=== PATIENT | female | born 1970 | race Caucasian/White ===

== ENCOUNTER → 2019-04-25 | Day surgery (SDC) | payer OTHER ==
[~2019-04-25] VITALS: Ht 149.9 cm; Wt 52.2 kg
[~2019-04-25] MED LIST: BUSPIRONE HCL10 MG PO; CARAFATE 1 GM TA1 G1 PO; DEXILANT30 MG PO; IPRAT-ALBUT 0.5-3 ML INH; LAMICTAL200 MG PO; LASIX 20 MG TAB20 MG PO; LISINOPRIL-HCT1 EAC1 PO; MS CONTIN15 MG PO; NORCO 10-325 T1 EACH PO; SINGULAIR 10 MG10 M1 PO; TOPAMAX 25 MG T25 M1 PO; TRAZODONE HCL100 MG PO; VENTOLIN HFA 1818 GM INH; VIIBRYD20 MG PO; ZANTAC 150MG T150 MG PO
--- NOTE | ~2019-04-25 | O ---
[facility] [place] [address] OPERATIVE REPORT Name: TYSHAWN VALIENTE Room #: REG [facility].#: [id number] Admission: 04/25/19 Attend Phys: Amy Bello, Discharge: Date of : 72 Report #: [id number] THIS REPORT FOR: //name// CC: REG [facility] Physician staff Amy Bello DATE OF SERVICE: 04/25/2019 PREOPERATIVE DIAGNOSES: 1. Left carpal tunnel syndrome. 2. Left de Quervain's tenosynovitis. 3. Left long trigger finger. 4. Right trigger thumb. POSTOPERATIVE DIAGNOSES: 1. Left carpal tunnel syndrome. 2. Left de Quervain's tenosynovitis. 3. Left long trigger finger. 4. Right trigger thumb. PROCEDURE PERFORMED: 1. Left open carpal tunnel release. 2. Left first dorsal compartment release. 3. Left long finger trigger finger release. 4. Injection of steroid and local anesthetic to right trigger thumb. SURGEON: Amy Bello MD ANESTHESIA: General mask anesthesia. ESTIMATED BLOOD LOSS: Minimal. TOURNIQUET TIME: 20 minutes. COMPLICATIONS: None. CONDITION: Stable. DISPOSITION: Recovery room. INDICATIONS: The patient is a 48-year-old female with the above-mentioned diagnosis. She elects for operative treatment. The risks, benefits, alternatives and complications were discussed including but not limited to infection, damage to vessels or nerves, incomplete relief of her symptoms. We also discussed flare reaction, skin discoloration and infection. With respect [facility] [place] [address] [place] [address] OPERATIVE REPORT Name: TYSHAWN VALIENTE Room #: REG [facility].#: [id number] Admission: 04/25/19 Attend Phys: Amy Bello, Discharge: Date of : 72 Report #: [id number] to be a steroid injection, informed consent was obtained. The correct extremity was identified and labeled by myself after verbal confirmation of the patient as well as visual confirmation and signed informed consent. DESCRIPTION OF PROCEDURE: The patient was brought back to the operating room and placed on a supine position. She received preoperative antibiotics. Tourniquet was placed over padding on the patient's left upper extremity. Left upper extremity was sterilely prepped and draped in usual fashion. Final timeout was taken to verify correct patient, operative procedure, operative site, all concurred. The arm was elevated, exsanguinated and the tourniquet inflated. All the procedures were done with aid of 3.5 loupe magnification. Next, incisions were made over the surgical sites. Approximately 2 cm incision was made over the first dorsal compartment at the level of the radial styloid. A 2.5-cm incision was made over the carpal tunnel in line with the ring and long finger web space and an oblique 1.5 cm incision was made at the long finger at the level of A1 jose j. First, attention was placed to long finger. Dissection was carried down through subcutaneous tissue with tenotomy scissors. A1 jose j was easily identified and incised. Careful attention was placed to avoid damage to the A2 jose j. The finger was taken through passive range of motion. The tendons glided smoothly. Each tendon was brought gently through the incision to decrease any adhesions between the two tendons. The finger was taken through passive range of motion. There was no locking or clicking. Next, attention was placed to the first compartment. The dissection was carried down through subcutaneous tissue with tenotomy scissors. The dorsal aspect of the first dorsal compartment was incised. There were two separate compartments for the EPB and APL tendons. These were both incised dorsally. The sensory nerve was identified and carefully protected. The release was all the way from the insertion of the APL tendon all the way to approximately 4 cm proximal to the radial styloid. The wrist was taken through full range of motion. There was no subluxation of the tendons. Next, attention was placed to the carpal tunnel and dissection was carried down through subcutaneous tissue with tenotomy scissors. In the mid portion of incision, a #15 blade was used to incise the transverse carpal ligament. The transverse carpal ligament was transected proximally from the antebrachial fascia in the forearm all the way through the fat in the palm. There was a moderate amount of adhesions around the nerve. These were all freed. The wound was thoroughly irrigated. All wounds were irrigated. The skin was closed with 4-0 nylon suture. Wound was dressed with Adaptic and sterile gauze. She was placed in a bulky dressing. All fingers were pink with brisk capillary refill at the conclusion of the case after deflation of tourniquet. All sponge and needle counts were correct. Next, under sterile conditions, 0.75 mL of betamethasone with 0.75 mL of 1% [facility] [address] [place] [address] OPERATIVE REPORT Name: TYSHAWN VALIENTE Room #: REG [facility]#: [id number] Admission: 04/25/19 Attend Phys: Amy Bello, Discharge: Date of : 72 Report #: [id number] lidocaine was injected subcutaneously at the A1 jose j on the right thumb. A Band-Aid was applied. She tolerated this well. By: [id number] Amy Bello MD /nt
[2019-04-25 10:01] LABS: CALCIUM 10.1 mg/dL (8.5-10.1); CREATININE 1.1 mg/dL (0.6-1.0); POTASSIUM 3.8 mmol/L (3.5-5.1)
[2019-04-25 10:17] VITALS: BP 88/47
[2019-04-25 11:58] VITALS: BP 88/47
== END | disposition home or self-care (01) ==
LOC: OR 09:02
PROVIDERS: Anesthesiology
DX: G56.02 Carpal tunnel syndrome, left upper limb (principal); M65.4 Radial styloid tenosynovitis [de Quervain]; M65.332 Trigger finger, left middle finger; M65.311 Trigger thumb, right thumb; I10 Essential (primary) hypertension; I48.91 Unspecified atrial fibrillation; J43.9 Emphysema, unspecified; F41.9 Anxiety disorder, unspecified; F32.9 Major depressive disorder, single episode, unspecified; K21.9 Gastro-esophageal reflux disease without esophagitis; F17.210 Nicotine dependence, cigarettes, uncomplicated; Z95.0 Presence of cardiac pacemaker; Z90.710 Acquired absence of both cervix and uterus; Z98.890 Other specified postprocedural states; Z79.899 Other long term (current) drug therapy; Z79.01 Long term (current) use of anticoagulants
CPT/HCPCS: 50010; 50101; 50386; 51736; 56526; 57006; 57091; 57178; 62110; 62900; 70005